=== PATIENT | male | born 1960 | race Caucasian/White ===

== ENCOUNTER 2017-04-29 13:41 | Emergency (ER) | payer MEDICARE, BC ==
[~2017-04-29] VITALS: Ht 190.5 cm; Wt 104.0 kg
[2017-04-29 13:46] VITALS: BP 140/65; PULSE 68; RESP 16; TEMP 98; O2SAT 97
[2017-04-29] MEDS ORDERED: PROP40TA3 PO (13:56)
[2017-04-29] MEDS ORDERED: HYDR-3366 PO (13:56)
[2017-04-29] MEDS ORDERED: XANA1TAB2 PO (13:56)
[2017-04-29] MEDS ORDERED: KETOROLAC TROMETHAMINE 60 MG/2 ML (IM) VIAL IM ONE (14:30)
[2017-04-29] MEDS ORDERED: ORPHENADRINE INJ 60 MG/2 ML AMP IM ONE (14:30)
--- NOTE | 2017-04-29 14:48 | RADRPT ---
EXAM DATE/TIME: 04/29/2017 14:23 [place] COMPARISON: No previous studies available for comparison. INDICATIONS : Left foot pain MEDICAL HISTORY : None. SURGICAL HISTORY : None. ENCOUNTER: Initial ACUITY: 3 weeks PAIN SCORE: 7/10 LOCATION: Left foot FINDINGS: Three view examination of the left foot demonstrates no soft tissue swelling, dislocation, or fractur e. The tarsal bones appear intact. The interphalangeal and metatarsophalangeal joints are intact. The calcaneus is intact. Mild plantar calcaneal spurring. Bony mineralization is normal. CONCLUSION: 1. No acute fracture or dislocation. Derian Gotti MD on April 29, 2017 at 14:46 Board Certified Radiologist. This report was verified electronically.
[2017-04-29] MEDS ORDERED: PRED20 PO (15:06)
--- NOTE | 2017-04-29 15:08 | PD ---
HPI . Left ankle pain Chief Complaint: Injury Time Seen by Provider: 14:02 Travel History International Travel<30 days: No Contact w/Intl Traveler<30days: No Traveled to known affect area: No History of Present Illness HPI 56-year-old male patient presents emergency department for evaluation of left ankle pain and swelling. Patient states he initially injured his left ankle approximately 3 weeks ago when he twisted it stepping off of a curb. Patient is visiting from [place] and went to [facility] last week and exacerbated the pain. The patient denies any major medical history except for headaches. Patient is on Okay for headaches. Patient states he's been taking ibuprofen and Okay and the pain persists. Patient states the pain is not related to movement and sometimes hurts just as bad when he is sitting still. Patient states he's been elevating his left foot and wrapping it with an Julian wrap. The pain and swelling have been persistent despite all of these measures. The patient is ambulatory without assistance. The left ankle is noticeably larger than the right ankle. PFSH Past Medical History Anxiety: Yes Diminished Hearing: No Headaches: Yes Hypertension: Yes Tetanus Vaccination: Unknown Influenza Vaccination: Yes ?: Not Past Surgical History Tonsillectomy: Yes Social History Alcohol Use: Yes (social) Tobacco Use: No Substance Use: No Allergies-Medications (Allergen,Severity, Reaction): Coded Allergies: No Known Allergies (Verified Allergy, Unknown, 04/29/17) Reported Meds & Prescriptions Reported Meds & Active Scripts Active Prednisone 20 Mg Tab 40 Mg PO DAILY 5 Days Take 40 mg (2 tablets) daily for 5 days Reported Xanax (Alprazolam) 1 Mg Tab 1 Mg PO Q8H PRN Okay (Hydrocodone-Acetaminophen) 10-325 Mg Tab 1 Tab PO Q6H PRN Propranolol (Propranolol HCl) 40 Mg Tab 40 Mg PO Q12HR Review of Systems Except as stated in HPI: all other systems reviewed are Neg Physical Exam Narrative GENERAL: Well-nourished, well-developed 56-year-old male patient in no acute distress. SKIN: Focused skin assessment warm/dry. HEAD: Normocephalic. Atraumatic EYES: No scleral icterus. No injection or drainage. NECK: Supple, trachea midline. No JVD or lymphadenopathy. CARDIOVASCULAR: Regular rate and rhythm without murmurs, gallops, or rubs. RESPIRATORY: Breath sounds equal bilaterally. No accessory muscle use. GASTROINTESTINAL: Abdomen soft, non-tender, nondistended. MUSCULOSKELETAL: Left ankle 2+ nonpitting edema. No cyanosis or erythema. BACK: Nontender without obvious deformity. No CVA tenderness. or Data Data Last Documented VS Vital Signs Date Time Temp Pulse Resp B/P (MAP) Pulse Ox O2 Delivery O2 Flow Rate FiO2 04/29/17 13:46 98.0 68 16 140/65 (90) 97 Orders Orders Foot, Complete ([id number]) (04/29/17 14:15) Ice/Cold Pack (04/29/17 14:15) Splint Or Brace Apply/Monitor (04/29/17 14:15) Ketorolac Inj (Toradol Inj) (04/29/17 14:30) Orphenadrine Inj (Norflex Inj) (04/29/17 14:30) MDM Medical Decision Making Medical Screen Exam Complete: Yes Emergency Medical Condition: Yes Differential Diagnosis Differential diagnoses includes but not limited to ankle sprain, foot contusion , foot fracture, tendon injury, ligament injury Narrative Course 56-year-old male patient presents emergency department for left ankle pain and swelling 3 weeks. The patient has tried Motrin, Julian wrap but the pain and swelling persists. An x-ray of the left foot shows no acute fracture or dislocation.Based on patient's symptoms, clinical presentation, radiological results, vital sign review and physical exam it is not necessary to admit the patient to the hospital or keep the patient in the emergency department for further evaluation. Patient will be given an IM injection of Toradol and an IM injection of Norflex, ice pack applied to the left ankle and an Julian wrap applied to the left ankle and a prescription for prednisone and discharged home with instructions to follow-up with his primary care. Diagnosis Primary Impression: Ankle contusion Qualified Codes: S90.02XA - Contusion of left ankle, initial encounter Patient Instructions: Ankle Sprain (ED), General Instructions Additional Instructions: Please return to emergency department if your symptoms return or worsen. Follow up with your primary care provider. Julian wrap left ankle. May apply ice to alleviate pain and swelling. Take medications as prescribed. Med/Other Pt SpecificInfo: Prescription(s) given Scripts Prednisone (Prednisone) 20 Mg Tab 40 MG PO DAILY for 5 Days, #10 TAB 0 Refills Take 40 mg (2 tablets) daily for 5 days Prov: Miesha Balderas 04/29/17 Disposition: 01 DISCHARGE HOME Condition: Stable Miesha Balderas Apr 29, 2017 15:08
== END 2017-04-29 15:54 | disposition home or self-care (01) ==
LOC: PHEFT 13:41
DX: S90.02XA Contusion of left ankle, initial encounter (principal); M25.572 Pain in left ankle and joints of left foot; I10 Essential (primary) hypertension; F41.9 Anxiety disorder, unspecified; Z79.899 Other long term (current) drug therapy; X58.XXXA Exposure to other specified factors, initial encounter
CPT/HCPCS: 73630; 96372; 99284; J1885; J2360